=== PATIENT | female | born 1975 | race Two or more races ===

== ENCOUNTER 2024-11-20 19:22 | Emergency (ER) | payer OTHER, SELFPAY ==
[2024-11-20 19:25] VITALS: BP 147/95
[2024-11-20 22:22] VITALS: BP 123/84
[2024-11-20 22:53] VITALS: BMI 26.2
[2024-11-20 23:03] VITALS: BP 132/91
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
[2024-11-20] MEDS: TORADOL 15 MG IV (23:33)
== END 2024-11-21 00:27 | disposition home or self-care (01) ==
LOC: EMR 19:22
PROVIDERS: EMERGENCY PHYSICIAN Emergency Medicine; FAMILY PHYSICIAN Family Medicine
DX: R51.9 Headache, unspecified (principal); I10 Essential (primary) hypertension
CPT/HCPCS: 96374; 99284; 70450